=== PATIENT | female | born 1955 | race Caucasian/White ===

== ENCOUNTER → 2016-05-09 | Outpatient (CLI) | payer SELFPAY ==
--- NOTE | 2016-05-12 12:35 | MM ---
Reason for exam: screening (asymptomatic). Last mammogram was performed 2 years and 2 months ago. History: Patient is postmenopausal. Family history of breast cancer in maternal grandmother at age 64. Benign left mammotome panel of the left breast, June 24, 2006. Physical Findings: A clinical breast exam by your physician is recommended on an annual basis and results should be correlated with mammographic findings. MG Screening Mammo w CAD Bilateral CC and MLO view(s) were taken. Prior study comparison: March 01, 2014, right breast MG work up mamm w CAD RT. February 20, 2014, bilateral MG screening mammo w CAD. November 15, 2012, bilateral digital screening mammo w/CAD. July 04, 2011, bilateral digital screening mammo w/CAD. The breast tissue is heterogeneously dense. This may lower the sensitivity of mammography. Previous mammotome biopsy in the left breast. No significant changes when compared with prior studies. ASSESSMENT: Negative, BI-RAD 1 RECOMMENDATION: Routine screening mammogram of both breasts in 1 year.
== END | disposition home or self-care (01) ==
LOC: RADMAMWWP 14:45
PROVIDERS: ATTEND Family Medicine
DX: Z12.31 Encounter for screening mammogram for malignant neoplasm of breast (principal)

== ENCOUNTER → 2017-09-30 | Outpatient (CLI) | payer BC | END | disposition home or self-care (01) | LOC: LABWHC1 09:06 | PROVIDERS: ATTEND Orthopaedic Surgery | DX: Z01.812 Encounter for preprocedural laboratory examination (principal) | CPT/HCPCS: 87070 ==

== ENCOUNTER 2017-10-26 05:38 | Day surgery (SDC) | payer BC ==
[2017-10-14 13:58] VITALS: BMI 30.1
--- NOTE | 2017-10-25 18:43 | HP ---
HISTORY AND PHYSICAL REASON FOR ADMISSION: Surgery scheduled for 10/26/2017 Elma Kim is a 62-year-old patient seen with symptomatic right knee osteoarthritis. After treatment options discussed, she elected to proceed with right total knee arthroplasty. Consent regarding the procedure was obtained. Medical clearance was provided by Dr. Marycarmen Roth. PAST MEDICAL HISTORY: Hypothyroidism. PAST SURGICAL HISTORY: section, cholecystectomy, herniorrhaphy, hysterectomy, right knee arthroscopy. MEDICATIONS: Gabapentin, levothyroxine, Topamax. ALLERGIES: None reported. SOCIAL HISTORY: Patient denies tobacco use. PHYSICAL EXAMINATION: Evaluation of right knee range of motion is 0-120 degrees. Tenderness along the medial joint line. Positive medial Jacqueline's. Crepitans medial and patellofemoral compartments with range of motion. Pain with patellofemoral compression. Ligaments stable. Hip rotation without pain. Distal neurovascular exam intact. RADIOGRAPHS: Radiographs of the right knee reveal severe medial moderate patellofemoral compartment osteoarthritis. IMPRESSION: 1. Right knee osteoarthritis. 2. Hypothyroidism. PLAN: Right total knee arthroplasty. Surgery scheduled for 10/26/2017. MMODL / IJN: [id number] /
[~2017-10-26 05:38] MED LIST: ACETAMINOPHEN TAB 500 MG TAB PO ONE; DEXAMETHASONE SOD PHOSPHATE 10 MG/ML 1 ML VIAL IV ONE; LACTATED RINGERS 1,000 ML IV SCH; LIDOCAINE 1% 20 ML VIAL (10MG/ML) FOR IV START INTRADERMA PRN; MELOXICAM 7.5 MG TAB PO ONE; MIDAZOLAM 2 MG/2 ML VIAL IV PRN; ONDANSETRON 4 MG/2 ML VIAL IVP ONE; SCOPOLAMINE 1.5MG/72HR PATCH TRANSDERM ONE; TRANEXAMIC ACID 1,000 MG in SODIUM CHLORIDE 0.9% 50 ML IVPB ONE; ceFAZolin IN SWFI 2 GM/20 ML SYRINGE IVP ONE
[2017-10-26] MEDS ORDERED: fentaNYL (PF) 50 MCG/ML 2 ML AMP ONE ×2 (07:05→07:30)
[2017-10-26] MEDS ORDERED: fentaNYL (PF) 50 MCG/ML 2 ML AMP IVP ONE (07:09)
[2017-10-26] MEDS ORDERED: TRANEXAMIC ACID 1,000 MG/10 ML VIAL ONE (07:30)
[2017-10-26] MEDS ORDERED: ceFAZolin 3,000 MG in SODIUM CHLORIDE 0.9% IRRIGATIO 3,000 ML IRRIGATION ONE (07:30)
[2017-10-26] MEDS ORDERED: SUCCINYLCHOLINE CHLORIDE 100 MG/5 ML SYR IV ONE (07:30)
[2017-10-26] MEDS ORDERED: SODIUM CHLORIDE 0.9% 100 ML BAG ONE (07:30)
[2017-10-26] MEDS ORDERED: ePHEDrine SULFATE/0.9% NACL/PF 50 MG/5 ML SYRINGE IV ONE (07:30)
[2017-10-26] MEDS ORDERED: NEOSTIGMINE 1 MG/ML 10 ML VIAL ONE (07:30)
[2017-10-26] MEDS ORDERED: VECURONIUM 10 MG VIAL IV ONE (07:30)
[2017-10-26] MEDS ORDERED: MIDAZOLAM 2 MG/2 ML VIAL ONE (07:30)
[2017-10-26] MEDS ORDERED: GLYCOPYRROLATE 0.2 MG/ML 2 ML VIAL ONE (07:30)
[2017-10-26] MEDS ORDERED: PROPOFOL 10 MG/ML 20 ML VIAL IV ONE (07:30)
[2017-10-26] MEDS ORDERED: ROPIVACAINE 246.25 MG, EPINEPHrine 0.5 MG, KETOROLAC 30 MG, cloNIDine HCL/PF 80 MCG, WA... MISCELLANE ONE ×5 (07:34)
[2017-10-26] MEDS ORDERED: LACTATED RINGERS 1,000 ML IV ONE ×2 (08:04→10:47)
[2017-10-26] MEDS ORDERED: ROPIVACAINE 1,100 MG, SODIUM CHLORIDE 0.9% 330 ML MISCELLANE PRN ×2 (09:40)
--- NOTE | 2017-10-26 09:55 | P.OP ---
Date of Procedure: 10/26/17 Preoperative Diagnosis: Right knee osteoarthritis Postoperative Diagnosis: Right knee osteoarthritis Procedure(s) Performed: Right total knee arthroplasty Implants: 1. Francia [employer] LPS tivanium size E right cemented femur 2. Francia [employer] tivanium size 5 cemented tibia 3. Francia posterior stabilized 12 mm polyethylene tibial insert 4. Francia 35 mm all polyethylene cemented patella Anesthesia: GETA, regional (Adductor canal), local Surgeon: Melchor Zelaya Business Support Specialist #1: Osmar Shah Estimated Blood Loss (ml): 100 Pathology: other (Bone) Condition: stable Disposition: PACU Indications for Procedure: 62-year-old patient seen was symptomatic right knee osteoarthritis. After having treatment options discussed, she elected to proceed with right total knee arthroplasty. Operative Findings: See description of procedure Description of Procedure: Patient was taken to the operative suite after having an adductor canal catheter placed by the department of anesthesia. Patient underwent a general anesthetic by the department of anesthesia. Patient was given preoperative IV intake antibiotics and TXA. A well-padded tourniquet was placed about the right lower extremity. The lower extremity was then prepped and draped in the normal sterile orthopedic fashion. The extremity was elevated, a tourniquet was insufflated to 300. A standard anterior incision was made sharply through skin. Dissection was taken down through the subcutaneous soft tissues down to the extensor mechanism. A medial arthrotomy was performed, patella was everted and knee was flexed. There was advanced osteoarthritis noted. A proximal tibial cutting guide was positioned. Proximal tibial cut was made. A distal intramedullary femoral cutting guide was positioned, distal femoral cut made. We placed the appropriate sizing guide and selected the appropriate size. A distal 4-in-1 femoral cutting block was positioned, distal femoral cuts were made. We now placed a trial femoral component into position, along with an appropriate size tibial tray and insert. We now took the knee through range of motion and had full extension good flexion and good overall soft tissue balance noted. The patella was everted and a flush cut made with patellar quad tendon. We templated the patella, appropriate drill holes were made. An appropriate trial patella was positioned, knee was taken through full range of motion with the patella tracking very nicely. The trial patella was removed. Drill holes were made through the femoral component. All trial components were removed after marking off the appropriate rotation of the tibia. Retractors were now positioned along the proximal tibia. An appropriate keel punch was made with the appropriate size tibial guide. At this point appropriate size implants were chosen and opened. The joint was irrigated copiously with pulse lavage mechanical irrigation. The posterior capsule was infiltrated with local analgesic. We mixed antibiotic methylmethacrylate. Once the methyl methacrylate was ready, the tibial component was cemented into place removing any excess methylmethacrylate. The femoral component was cemented into place removing the removing any excess methylmethacrylate. We then inserted the appropriate size polyethylene tibial insert. We made sure that it was locked into position. We took the knee into full extension, and then back in a flexion making sure we had removed any excess methylmethacrylate. The patellar component was then cemented down and secured with clamp. Excess methylmethacrylate removed. We kept the knee in full extension, patellar clamp in position until methylmethacrylate had hardened. Once it had hardened the patellar clamp was removed. The knee was taken through full range of motion. The patella tracked nicely. There was good soft tissue balancing. The tourniquet was now released. Additional hemostasis was achieved via electrocautery. A second gram of TXA was given. The superficial soft tissues were now infiltrated local analgesic. The wound was irrigated with pulse lavage mechanical irrigation. The extensor mechanism was repaired with Vicryl. We checked the repair with range of motion and it was stable. The subcutaneous soft tissues were repaired with Vicryl in layers. The skin was approximated with pernio/Dermabond. Sterile dressings were applied followed by loose web roll and Kostas bandage. The patient was transferred to a bed, and taken to recovery in stable and satisfactory condition. Hussein PINEDA assisted with the procedure.
[2017-10-26] MEDS ORDERED: HYDROcodone/APAP 7.5-325MG 1 EACH TAB PO PRN ×2 (10:03→10:04)
[2017-10-26] MEDS ORDERED: ONDANSETRON 4 MG/2 ML VIAL IVP PRN (10:03)
[2017-10-26 10:05] VITALS: TEMP 97.2
[2017-10-26] MEDS: HYDROmorphone 0.5 MG/0.5 ML SYRINGE IVP PRN ×2 (10:05→10:17)
--- NOTE | 2017-10-26 10:54 | XR ---
Limited right knee HISTORY: Status post right knee total arthroplasty 2 views of the right knee Patient is status post right knee arthroplasty. There is anatomic alignment. Lucency is present in th e soft tissues compatible with postop state. IMPRESSION: Orthopedic follow-up.
[2017-10-26] MEDS ORDERED: HYDROcodone/APAP 7.5-325MG 1 EACH TAB PO ONE ×2 (11:33→11:35)
[2017-10-26 11:59] VITALS: RESP 18
[2017-10-26] MEDS: ceFAZolin 1,000 MG in DEXTROSE/WATER 1 50ML.BAG IVPB ONE ×2 (12:05→13:01)
[2017-10-26] MEDS ORDERED: traMADol 50 MG TAB PO SCH (13:00)
[2017-10-26] MEDS ORDERED: LACTATED RINGERS 1,000 ML IV SCH (13:00)
[2017-10-26 13:47] VITALS: BP 142/75; PULSE 53
--- NOTE | 2017-10-26 18:44 | P.ONQ ---
Anesthesiology Proc Note - PNB - Peripheral Nerve Block Performed Right Adductor Canal Infusion Time Out Performed: Yes Procedure Start Time: 07:10 Procedure Stop Time: 07:20 Indication: Acute Post-Operative Pain, Requested by physician Sedation Type: Sedate with meaningful contact maintained Preparation: Sterile Dressing Position: Supine Catheter: Indwelling Needle Types: On-Q Needle Size: 50mm (2") Needle Gauge: 21 Technique: Ultrasound Injectate: 0.5% Ropivacaine (see comment for volume) (ropi .5% 20cc) Blood Aspirated: No Pain Paresthesia on Injection Noted: No Resistance on Injection: Normal Events: Uneventful and Well Tolerated
== END 2017-10-26 14:40 | disposition home health service (06) ==
LOC: OR 05:38
PROVIDERS: ATTEND Orthopaedic Surgery
DX: M17.11 Unilateral primary osteoarthritis, right knee (principal); E03.9 Hypothyroidism, unspecified; G43.909 Migraine, unspecified, not intractable, without status migrainosus; Z79.890 Hormone replacement therapy; Z79.899 Other long term (current) drug therapy; Z79.82 Long term (current) use of aspirin; Z91.048 Other nonmedicinal substance allergy status
CPT/HCPCS: 97161; 88300; 73560; 27442; C1776; C1713; J2250; J0171; J1100; J2710; J2405; J0690 ×3; J3010; J1885; J2795; J0330; J2704; J0735; J1170

== ENCOUNTER → 2018-02-08 | Outpatient (CLI) | payer BC ==
--- NOTE | 2018-02-09 10:29 | MM ---
Reason for exam: screening (asymptomatic). Last mammogram was performed 1 year and 9 months ago. History: Patient is postmenopausal. Family history of breast cancer in maternal grandmother at age 64. Benign left mammotome panel of the left breast, June 24, 2006. Physical Findings: A clinical breast exam by your physician is recommended on an annual basis and results should be correlated with mammographic findings. MG 3D Screening Mammo W/Cad Bilateral CC and MLO view(s) were taken. Prior study comparison: May 09, 2016, bilateral MG screening mammo w CAD. March 01, 2014, right breast MG work up mamm w CAD RT. The breast tissue is heterogeneously dense. This may lower the sensitivity of mammography. Previous mammotome biopsy in the left breast. Dense tissues in the upper outer quadrants on a background of scattered densities. No significant changes when compared with prior studies. ASSESSMENT: Negative, BI-RAD 1 RECOMMENDATION: Routine screening mammogram of both breasts in 1 year.
== END ==
LOC: RADMAMWWP 07:11
PROVIDERS: ATTEND Family Medicine
DX: Z12.31 Encounter for screening mammogram for malignant neoplasm of breast (principal)
CPT/HCPCS: 77063; 77067

== ENCOUNTER → 2018-10-08 | Outpatient (CLI) | payer BC ==
--- NOTE | 2018-10-08 10:00 | MM ---
Reason for exam: clinical finding. Last mammogram was performed 8 months ago. History: Patient is postmenopausal. Family history of breast cancer in maternal grandmother at age 64. Benign left mammotome panel of the left breast, June 24, 2006. Physical Findings: Nurse did not find any significant physical abnormalities on exam. MG 3D Diag Mammo W/Cad LT CC and MLO view(s) were taken of the left breast. Prior study comparison: February 08, 2018, bilateral MG 3d screening mammo w/cad. May 09, 2016, bilateral MG screening mammo w CAD. There are scattered fibroglandular densities. There is no discrete abnormality. No significant new findings when compared with previous films. These results were verbally communicated with the patient and result sheet given to the patient on 10/08/18. ASSESSMENT: Benign, BI-RAD 2 RECOMMENDATION: Return to routine screening mammogram schedule for both breasts. Back on schedule. Manage patient on a clinical basis.
== END | disposition home or self-care (01) ==
LOC: RADMAMWWP 07:52
PROVIDERS: ATTEND Family Medicine
DX: N64.4 Mastodynia (principal)
CPT/HCPCS: 77061; 77065

== ENCOUNTER → 2020-06-14 | Outpatient (CLI) | payer BC ==
--- NOTE | 2020-06-15 15:39 | XR ---
Left hand and left wrist HISTORY: Pain base of left thumb for 6 months 2 views of the left hand and 2 views the left wrist There is some joint space loss, subchondral sclerosis, hypertrophic change at the carpometacarpal timbo nt of the first digit. There is no fracture or dislocation. Alignment is maintained. IMPRESSION: Osteoarthritic changes.
== END | disposition home or self-care (01) ==
LOC: RADXRMAIN 15:42
PROVIDERS: ATTEND Family Medicine
DX: M19.042 Primary osteoarthritis, left hand (principal); M19.032 Primary osteoarthritis, left wrist

== ENCOUNTER 2021-02-07 08:31 | Day surgery (SDC) | payer BC, MEDICARE ==
[2021-02-05 15:31] VITALS: BMI 30.4
[~2021-02-07 08:31] MED LIST changes: -ACETAMINOPHEN TAB 500 MG TAB PO ONE; -DEXAMETHASONE SOD PHOSPHATE 10 MG/ML 1 ML VIAL IV ONE; +LIDOCAINE 1% (10MG/ML) FOR IV START INTRADERMA PRN; -LIDOCAINE 1% 20 ML VIAL (10MG/ML) FOR IV START INTRADERMA PRN; -MELOXICAM 7.5 MG TAB PO ONE; -MIDAZOLAM 2 MG/2 ML VIAL IV PRN; -ONDANSETRON 4 MG/2 ML VIAL IVP ONE; -SCOPOLAMINE 1.5MG/72HR PATCH TRANSDERM ONE; -TRANEXAMIC ACID 1,000 MG in SODIUM CHLORIDE 0.9% 50 ML IVPB ONE; -ceFAZolin IN SWFI 2 GM/20 ML SYRINGE IVP ONE
[2021-02-07 08:50] VITALS: RESP 18; TEMP 97.4
[2021-02-07] MEDS ORDERED: PROPOFOL 10 MG/ML 20 ML VIAL IV ONE (10:45)
--- NOTE | 2021-02-07 10:53 | P.GSHP ---
History of Present Illness H&P Date: 02/07/21 Chief Complaint: Screening colonoscopy This is a 66-year-old female who presents today for screening colonoscopy. Patient denies any significant GI complaints. Past Medical History Past Medical History: Hypertension, Osteoarthritis (OA) Additional Past Medical History / Comment(s): migraines History of Any Multi-Drug Resistant Organisms: None Reported Past Surgical History: Cholecystectomy, Hysterectomy, Joint Replacement Additional Past Surgical History / Comment(s): total rt knee,acl rt knee,c sect x3,part hyst,rt knee cartilage removed,hiatal hernia Past Anesthesia/Blood Transfusion Reactions: Family History of Problems w/ Anesthesia, Postoperative Nausea & Vomiting (PONV) Additional Past Anesthesia/Blood Transfusion Reaction / Comment(s): son has PONV, very anxious when first going under anesthesia Smoking Status: Never smoker - Past Family History Mother Family Medical History: No Reported History Father Family Medical History: Cancer, Deep Vein Thrombosis (DVT) Brother(s) Family Medical History: Cancer Medications and Allergies Home Medications Medication Instructions Recorded Confirmed Type Atorvastatin Calcium [Lipitor] 20 mg PO HS 10/14/17 02/05/21 History Calcium Carbonate/Vitamin D3 1,200 mg PO HS 10/14/17 02/05/21 History [Calcium 600-Vit D3 200 Tablet] Cholecalciferol [Vitamin D3] 50 mcg PO DAILY 10/14/17 02/07/21 History Levothyroxine Sodium [Synthroid] 137 mcg PO QA 10/14/17 02/05/21 History Magnesium 500 mg PO DAILY 10/14/17 02/05/21 History Metoprolol Succinate (ER) [Toprol 50 mg PO QAM 10/14/17 02/05/21 History Xl] Topiramate [Topamax] 100 mg PO HS 10/14/17 02/05/21 History Vitamin B Complex 1 each PO DAILY 10/14/17 02/05/21 History Amitriptyline HCl 10 mg PO HS 02/05/21 02/05/21 History Fexofenadine HCl [Meli Allergy] 180 mg PO HS 02/05/21 02/05/21 History L.acidoph,Paracasei, B.lactis 1 each PO DAILY 02/05/21 02/05/21 History [Probiotic] amLODIPine BESYLATE/BENAZEPRIL 1 each PO HS 02/05/21 02/05/21 History [amLODIPine BESYLATE/BENAZEPRIL 5-10 mg] Allergies Allergy/AdvReac Type Severity Reaction Status Date / Time nickel Allergy skin Verified 02/07/21 08:47 irritation Surgical - Exam Vital Signs Temp Pulse Resp BP Pulse Ox 97.4 F L 89 18 137/86 96 02/07/21 08:49 02/07/21 08:49 02/07/21 08:49 02/07/21 08:49 02/07/21 08:49 - General well developed, well nourished, no distress - Eyes PERRL - ENT normal pinna - Neck no masses - Respiratory normal expansion - Cardiovascular Rhythm: regular - Abdomen Abdomen: soft, non tender Assessment and Plan Assessment: We'll perform screening colonoscopy
--- NOTE | 2021-02-07 11:07 | P.OP ---
Date of Procedure: 02/07/21 Preoperative Diagnosis: Screening colonoscopy Postoperative Diagnosis: Mild diverticulosis Procedure(s) Performed: Colonoscopy Anesthesia: MAC Surgeon: Dakotah Quiñones Pathology: none sent Condition: stable Disposition: PACU Description of Procedure: The patient's placed on the endoscopy table in the lateral position. She received IV. Digital rectal exam was performed which revealed no abnormalities. Flexible colonoscope was then placed patient anus passed throughout the entire colon. Ileocecal valve was visualized. The cecum appeared normal. The ascending colon, transverse colon and descending colon appeared normal. In the sigmoid colon was a few scattered diverticula. The scope was then brought back the rectum and this appeared normal. Scope withdrawn for patient.
[2021-02-07 11:26] VITALS: BP 124/85; PULSE 78
== END 2021-02-07 12:00 | disposition home or self-care (01) ==
LOC: ORWHC2ENDO 08:31
PROVIDERS: ATTEND Surgery
DX: Z12.11 Encounter for screening for malignant neoplasm of colon (principal); I10 Essential (primary) hypertension; M19.90 Unspecified osteoarthritis, unspecified site; Z79.899 Other long term (current) drug therapy; Z90.49 Acquired absence of other specified parts of digestive tract
CPT/HCPCS: G0121; J2704

== ENCOUNTER → 2021-10-02 | Outpatient (CLI) | payer MEDICARE ==
--- NOTE | 2021-10-03 04:02 | MR ---
EXAMINATION TYPE: MR wrist LT wo con DATE OF EXAM: 10/02/2021 COMPARISON: None HISTORY: Left wrist pain, swelling and limited movement. Left wrist fracture over 20 years ago. Multiplanar multiecho imaging of the left wrist with no contrast. The distal radius and ulna appear intact. Intercarpal joint spaces are fairly normal. No fracture see n. There is a small degenerative cyst in the distal scaphoid. The metacarpals appear intact. There is a mild wrist joint effusion. The flexor and extensor tendons of the wrist appear intact. No evidence of focal bone destruction. Th e triangular cartilage appears intact. There is increased joint fluid anterior to the radial styloid process. There is some narrowing and spurring at the first carpometacarpal joint. There is some mild edema in the trapezium. IMPRESSION: No fracture. No evidence of ligament or tendon tear. There is some osteoarthritis at the first carpometacarpal joint. Mild edema in the trapezium. Mild wrist joint effusion suggestive of some nonspecific synovitis.
== END | disposition home or self-care (01) ==
LOC: RADMRIMAIN 16:22
PROVIDERS: ATTEND Family Medicine
DX: M19.032 Primary osteoarthritis, left wrist (principal)

== ENCOUNTER → 2021-12-17 | Outpatient (CLI) | payer MEDICARE ==
--- NOTE | 2021-12-19 18:10 | MM ---
Reason for Exam: Screening (asymptomatic). Last mammogram was performed 3 year(s) and 10 month(s) ago. Patient History: Menarche at age 13. First Full-Term at age 26. Hysterectomy at age 44. Postmenopausal. 06/24/2006, Benign Core Biopsy on the left side. Maternal grandmother had breast cancer, age 64. Maternal grandmother had ovarian cancer, age 61. Risk Values: Marcelina 5 year model risk: 2.2%. NCI Lifetime model risk: 8.2%. Prior Study Comparison: 05/09/2016 Bilateral Screening Mammogram, [facility]. 02/08/2018 Bilateral Screening Mammogram, [facility]. 10/08/2018 Left Diagnostic Mammogram, [facility]. Tissue Density: The breast tissue is heterogeneously dense. This may lower the sensitivity of mammography. Findings: Analyzed By CAD. Pattern appears stable. Scattered benign calcifications are present bilaterally. Some stable grouped calcifications are within the right breast upper aspect 12:00 position No suspicious groups of microcalcifications, spiculated or lobular masses, architectural distortion or other secondary signs of malignancy are mammographically apparent. Overall Assessment: Benign, BI-RAD 2 Management: Screening Mammogram of both breasts in 1 year. A negative mammogram report should not preclude additional follow up of suspicious palpable abnormalities. Patient should continue monthly self breast exam. A clinical breast exam by your physician is recommended on an annual basis and results should be correlated with mammographic findings. Electronically signed and approved by: Rey Miranda D.O. Radiologis
== END | disposition home or self-care (01) ==
LOC: RADMAMWWP 13:32
PROVIDERS: ATTEND Family Medicine
DX: Z12.31 Encounter for screening mammogram for malignant neoplasm of breast (principal); Z78.0 Asymptomatic menopausal state; Z80.3 Family history of malignant neoplasm of breast; Z98.890 Other specified postprocedural states
CPT/HCPCS: 77063; 77067

== ENCOUNTER → 2023-12-28 | Outpatient (CLI) | payer MEDICARE ==
--- NOTE | 2023-12-29 10:19 | MR ---
EXAMINATION TYPE: MR lumbar spine wo con DATE OF EXAM: 12/28/2023 2:41 PM COMPARISON: NONE HISTORY: low back pain that radiates down left leg Multiplanar, MultiSpin echo imaging of the lumbar spine was performed. Severe scoliosis convex to the right. L1-L2: Mild disc desiccation posterior disc bulge. No herniation or protrusion. No canal stenosis is present. Foramina are patent bilaterally. L2-L3: Moderate disc desiccation. Posterior disc bulge with left lateral recess stenosis mild in degr ee. No canal stenosis is present. Foramina are patent bilaterally. L3-L4: Severe disc desiccation with posterior disc bulge. Left lateral recess stenosis and left kristi inal encroachment. No central stenosis. Right neural foramen is patent. L4-L5: Moderate disc desiccation. Mild posterior disc bulge. Right lateral recess stenosis and right foraminal encroachment. No central stenosis. L5-S1: Normal disc appearance without desiccation. No herniation, protrusion or disc bulging. No ca nal stenosis is present. Foramina are patent bilaterally. Lumbar segments are intact. No paraspinal masses are identified. Conus medullaris has a normal appe arance. IMPRESSION: 1. Degenerative disc disease as discussed with facet joint arthropathy and varying degrees of neural foraminal encroachment and lateral recess stenosis. [facility], , 12/29/2023 10:17 AM
== END | disposition home or self-care (01) ==
LOC: RADMRIMAIN 13:53
PROVIDERS: ATTEND Family Medicine
DX: M51.369 Other intervertebral disc degeneration, lumbar region without mention of lumbar back pain or lower extremity pain (principal); M99.73 Connective tissue and disc stenosis of intervertebral foramina of lumbar region; M47.26 Other spondylosis with radiculopathy, lumbar region
CPT/HCPCS: 72148

== ENCOUNTER → 2024-01-19 | Outpatient (CLI) | payer MEDICARE ==
--- NOTE | 2024-01-20 11:04 | MM ---
Reason for Exam: Screening (asymptomatic). Last mammogram was performed 2 year(s) and 1 month(s) ago. Patient History: Menarche at age 13. First Full-Term at age 26. Hysterectomy at age 44. Postmenopausal. 06/24/2006, Benign Core Biopsy on the left side. Maternal grandmother had breast cancer, age 64. Maternal grandmother had ovarian cancer, age 61. Risk Values: Marcelina 5 year model risk: 2.2%. NCI Lifetime model risk: 7.6%. Prior Study Comparison: 02/08/2018 Bilateral Screening Mammogram, [facility]. 10/08/2018 Left Diagnostic Mammogram, [facility]. 12/17/2021 Bilateral MG 3D screening mammo w/cad, [facility]. Tissue Density: The breasts are heterogeneously dense, which may obscure small masses. Findings: Analyzed By CAD. Right breast: There is no suspicious group of microcalcifications or new suspicious mass. Left breast: There is no suspicious group of microcalcifications or new suspicious mass. Overall Assessment: Negative, BI-RAD 1 Management: Screening Mammogram of both breasts in [address] [facility] will attempt to contact patient to return for supplemental views and ultrasound if indicated. Patient should continue monthly self-breast exams. A clinical breast exam by your physician is recommended on an annual basis. This exam should not preclude additional follow-up of suspicious palpable abnormalities. Note on Marcelina scores and lifetime risk: 1. A Marcelina score greater than 3% is considered moderate risk. If this is the case, consider specialist referral to assess eligibility for a risk reducing agent. 2. If overall lifetime risk for the development of breast cancer is 20% or higher, the patient may qualify for future screening with alternating mammogram and breast MRI. [facility], , 01/20/2024 11:01 AM. Electronically signed and approved by: Louis Amaral DO
== END | disposition home or self-care (01) ==
LOC: RADMAMWWP 07:53
PROVIDERS: ATTEND Family Medicine
CPT/HCPCS: 77063; 77067